=== PATIENT | male | born 1955 | race Caucasian/White ===

== ENCOUNTER 2025-01-04 12:55 | Emergency (ER) | payer MEDICARE, SELFPAY ==
--- OUTSIDE RECORDS SUMMARY | 2025-01-04 12:58 | XMS_ITS | Clinical Summary ---
Author Organization [facility] Address [address] [place] [address] Care Team Providers Care Shoe Puller Name Role Phone Clinic, No Pcp Or Primary Care Provider Unavaila ble Allergies Active Allergy Reactions Criticality Noted Date Comments Penicillins Hives 06/20/2010 Medications calcium carbonate (TUMS) 200 mg calcium (500 mg) chewable tablet Take 1 tablet by mouth 3 times daily with meals. Takes prn 0 01/19/2017 Active Omeprazole 20 mg tabletIndication s:Gastroesophage al reflux disease, esophagitis presence not specified Take 1 tablet by mouth 2 times daily. twice daily before a meal 60 tablet 1 01/20/2020 Active Active Problems Problem Noted Date Diagnosed Date GERD (gastroesophageal reflux disease) 2 Atypical chest pain 07/02/2010 Vitamin D deficiency 07/02/2010 Immunizations Name Administration Dates Next Due Td (Age >=7 Years) 04/07/2003,12/25/2002 Tdap 02/08/2014 Family History Medical History Relation Name Comments Heart Disease Father CAD mid 70s; d ied of [place] @ 85 yo Stroke Maternal Grandfather of CVA @ 72 yo Relation Name Status Comments Father Maternal Grandfather Social History Tobacco Use Types Packs/Day Years Used Date Smoking Tobacco: Never Smokeless Tobacco: Never Tobacco Cessation:Counseling Given: No Alcohol Use Standard Drinks/Week Comments Yes 0 (1 standard drink = 0.6 oz pur e alcohol) very infrequent PHQ-2 Answer Date Recorded PHQ-2 Score 0 01/20/2020 Social Connections Answer Date Recorded Frequency of Communication with Friends and Fami ly Not on file 11/09/2021 Financial Resource Strain Answer Date R ecorded Difficulty of Paying Living Expenses Not on file 11/09/2021 Difficulty of Paying Living Expenses Not on file 11/09/2021 Sex and Gender Information Value Date Recorded Sex Assigned at Not on file 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 Gender Identity Not on file Sexual Orientation Not on file Obstetrics History Last Filed Vital Signs Vital Sign Reading Time Taken Comments Blood Pressure 124/82 01/20/2020 1:04 PM CDT Pulse 64 01/20/2020 1:04 PM CDT Temperature 36.9 C (98.5 F) 01/20/2020 1:04 PM CDT Respiratory Rate 12 07/14/2017 5:34 PM CDT Oxygen Saturation 100% 01/20/2020 1:04 PM CDT Inhaled Oxygen Concentration - - Weight 69.7 kg (153 lb 11.2 oz) 01/20/2020 1:04 PM CDT Height 170.1 cm (5' 6.97) 01/20/2020 1:04 PM CD T Body Mass Index 24.1 01/20/2020 1:04 PM CDT Plan of Treatment Health Maintenance Due Date Last Done Comments Pneumococcal series for age 50+ (1 of 1 - PCV) 2006 Zoster (shingles) series for age 50+ (1 of 2) 2006 BMI (ht and wt on same day) for age 18+ 01/19/2021 01/20/2020, 03/18/2019, 01/04/2018, Additional history exists Depression screening for age 12+ 01/22/2021 01/23/2020, 01/20/2020, 01/20/2020, Additional history exists Fecal testing non-DNA (FIT,FOBT,iFOBT) for age 45-75 08/02/2021 08/02/2020 Tetanus booster 02/09/2024 02/08/2014, 03/11, 12/25/2002 COVID-19 vaccine series ( season) 2024 Influenza for age 65+ 07/10/2024 Lipids for age 45-75 01/22/2025 01/23/2020, 01/19/2017, 01/23/2012, Additional history exists RSV vaccine for adults or (1 - 1-dose 75+ series) 2031 Tdap Completed 02/08/2014 Hepatitis C screening for ag e 18-79 Completed 01/19/2017 Procedures Procedure Name Priority Date/Time Associated Diagnosis Comments OCCULT BLOOD IFOBT STOOL Routine 08/02/2020 12:26 PM CDT Screening for colorectal cancer LIPID PANEL W REFLEX MEASURED LDL Routine 01/23/2020 11:17 AM CDT Health maintenance examination ANTI HCV Routine 01/19/2017 3:11 PM CDT Health maintenance examination from Last 3 Months or Most Recently Relevant to Health Maintenance Results * OCCULT BLOOD IFOBT STOOL (08/02/2020 12:26 PM CDT) STOOL BLOOD ,IFOBT Negative Negative 08/10/2020 9:38 AM CDT [facility] Stool STOOL SPECIMEN / Unknown Non-Blood / Unknown 08/02/2020 12:26 PM CDT 08/08/2020 12:26 PM CDT Ishmael Underwood MD LABORATORY Final Result [facility] [address] [place] [address], [place] [phone] * LIPID PANEL W REFLEX MEASURED LDL (01/23/2020 11:17 AM CDT) CHOLESTEROL,TOTAL 196 100 - 199 mg/dL 01/23/2020 11:16 PM CDT [facility] TRAL LABORATORY TRIGLYCERIDES 33 <150 mg/dL 01/23/2020 11:16 PM CDT [facility] HDL CHOLESTEROL 65 >40 mg/dL 0 11:16 PM CDT [facility] TRAL LABORATORY NON-HDL CHOLESTEROL 131 <145 mg/dl 01/23/2020 11:16 PM CDT [facility] TRAL LABORATORY CHOL/HDL RATIO 3.02 <4.50 01/23/2020 11:16 PM CDT [facility] TRAL LABORATORY LDL CHOLESTEROL 124 <=130 mg/dL 01/23/2020 11:16 PM CDT [facility] TRAL LABORATORY PROVIDER ORDERED STATUS FASTING 01/23/2020 11:16 PM CDT [facility] Blood BLOOD SPECIMEN / Unknown Venipuncture / Unknown 01/23/2020 11:17 AM CDT 01/23/2020 11:17 AM CDT us Ishmael Underwood MD CHEMISTRY Final Result [facility] [address] [place] [address], [place] * ANTI HCV (01/19/2017 3:11 PM CDT) HEPATITIS C ANTIBODY Non-Reacti ve Non-Reacti ve 01/19/2017 9:19 PM CDT [facility] TRAL LABORATORY Blood BLOOD SPECIMEN / Unknown Venipuncture / Unknown 01/19/2017 3:11 PM CDT 01/19/2017 3:11 PM CDT Narrative [facility] - 01/19/2017 9:19 PM CDT Antibodies to HCV not detected; does not exclude the possibility of exposure to HCV. us Ishmael Underwood MD SEND OUTS Final Result [facility] [address] [place] [address], [place] from Last 3 Months or Most Recently Relevant to Health Maintenance Care Teams Shoe Puller Relationship Specialty Start Date End Date Clinic, No Pcp Or . PCP - General 05/19/24
[2025-01-04 13:07] VITALS: BP 160/87; PULSE 74; RESP 20; TEMP 36.7; O2SAT 98
--- NOTE | 2025-01-04 13:20 | ED.GENADULT ---
HPI - General Adult General Chief complaint: Chest Pain Stated complaint: Chest pain Time Seen by Provider: 01/04/25 13:14 History of Present Illness HPI narrative: Arrives complaining of left side chest pain that is intermittent and started at 0300 today. Denies pain in triage, denies SOB or other complaints. Alert and oriented, ABCs intact. 69-year-old man presenting to the emergency department with concern of left-sided chest pain. Has been intermittent over the last 10-12 hours beginning in the swift tender. Sharp twinges of pain. Recurred. Has been working out again and was chopping some wood thought maybe that might be related but seems independent of that is not particularly sore. Not associated with lightheadedness. Not really short of breath. Does have a history of GERD but that is usually a sense of burning in the mid chest where this discomfort has been recurring. Otherwise regularly physically active without difficulty. No significant injuries recently. Does have a history of some palpitations but this is different. On last clinic lab evaluation apparently doctor suggested the he had ?lost a pt of blood?. He mentions this in discussion of GERD history Review of Systems Status of ROS: Reports: 6 or more systems reviewed and unremarkable except as noted in History and below PFSH PFS Social History Smoking Status: Never smoker Do you use any of these nicotine containing products: None How often do you have a drink containing alcohol: monthly or less AUDIT-C Alcohol total score: 1 Non-prescribed substance use: denies use Exam Narrative: Exam Narrative: Pleasant. NAD. Quite calm. Skin is warm and dry. No unusual rash noted. No reproducible pain to palpation of the chest. Lungs are clear. Heart in regular rate and rhythm without murmur rub or gallop. Abdomen is soft and nontender. Opening and closing chest with arm movements does not elicit reproduction of this specific discomfort. Well-perfused peripherally without edema. Const: Vital Signs, click to edit/add: Vital Signs - 24 hr 01/04/25 13:07 01/04/25 15:17 Temperature 98.0 F 98.2 F Pulse Rate [Pulse Oximeter] 74 67 Respiratory Rate 20 18 Blood Pressure [Ri ght Upper Arm] 160/87 H 141/94 H Pulse Oximetry 98 99 Oxygen Delivery Me thod Room Air Room Air Documenting provider has reviewed patient's vital signs: yes Course Vital Signs Vital signs: Initial Vital Signs Temperature 98.0 F 01/04/25 13:07 Temperature Source Temporal Artery Scan 01/04/25 13:07 Pulse Rate 74 01/04/25 13:07 Pulse Rhythm Regular 01/04/25 13:07 Respiratory Rate 20 01/04/25 13:07 Blood Pressure 160/87 H 01/04/25 13:07 Blood Pressure Mean 111 H 01/04/25 13:07 Pulse Oximetry 98 01/04/25 13:07 Oxygen Delivery Method Room Air 01/04/25 13:07 Vital Signs Temperature 98.0 F 01/04/25 13:07 Pulse Rate 74 01/04/25 13:07 Respiratory Rate 20 01/04/25 13:07 Blood Pressure 160/87 H 01/04/25 13:07 Pulse Oximetry 98 01/04/25 13:07 Oxygen Delivery Method Room Air 01/04/25 13:07 Temperature 98.2 F 01/04/25 15:17 Pulse Rate 67 01/04/25 15:17 Respiratory Rate 18 01/04/25 15:17 Blood Pressure 141/94 H 01/04/25 15:17 Pulse Oximetry 99 01/04/25 15:17 Oxygen Delivery Method Room Air 01/04/25 15:17 Medical Decision Making MDM Narrative Medical decision making narrative: Would monitor for time particularly for PVCs or PACs. Per his report this is atypical for his history of heartburn. Look for evidence of ischemic cardiac injury. Other electrolyte abnormalities that might be contributing to arrhythmia. Monitor for general arrhythmia. Doubtful dissection. Doubtful pneumothorax. Unlikely pneumonia or infectious etiology otherwise. Possibly though chest wall related. Labs are reassuring with hemoglobin 12.9. No events on monitor. Did review tracings Otherwise well. Vitals reassuring, stable. See patient discharge plan for further discussion Your labs looked quite good here today. I cannot identify a reason for your symptoms. I would consider follow-up with your primary care provider for further evaluation. Return for marked increase in persistent pain, associated shortness of breath, lightheadedness or nausea. Keep playing broom ball :) Lab Data Lab results reviewed: Yes I reviewed the patient's lab results Labs: Lab Results 01/04/25 01/04/25 01/04/25 Range/Units 13:35 13:50 14:50 WBC 7.14 (4.50-11.00) K/uL RBC 4.41 (4.30-5.90) m/uL Hgb 12.9 L (13.5-17.5) gm/dL Hct 40.2 (37.0-53.0) % MCV 91 (80-100) fL MCH 29 (26-34) pg MCHC 32 (32-36) gm/dL RDW Coeff of Sangeeta 13.4 (11.5-15.5) % Plt Count 233 (140-440) K/uL Neut % (Auto) 79.9 H (42.0-72.0) % Lymph % (Auto) 10.5 L (20-44) % Cameron % (Auto) 8.4 (0.0-11.0) % Eos % (Auto) 0.8 (0.0-7.0) % Baso % (Auto) 0.3 (0.0-3.0) % Neut # (Auto) 5.70 (1.7-7.0) K/uL Lymph # (Auto) 0.70 L (0.90-2.90) K/uL Cameron # (Auto) 0.60 (0.00-0.90) K/UL Eos # (Auto) 0.06 (0.00-0.50) K/uL Baso # (Auto) 0.02 (0.00-0.30) K/uL Abs Immat Gran (auto) 0.01 (0.00-0.30) K/uL Imm/Tot Granulo (auto) 0.1 % D-Dimer Quant (PE/DVT) 0.41 (0.00-0.50) ug/ml Sodium 139 (135-149) mmol/L Potassium 4.5 (3.6-5.1) mmol/L Chloride 102 (96-114) mmol/L Carbon Dioxide 28 (20-32) mmol/L Anion Gap 9 (7-15) mEq/L BUN 32 H (7-30) mg/dL Creatinine 1.5 (0.5-1.5) mg/dL Estimated GFR 50 ml/min Glucose 89 (60-115) mg/dL Calcium 9.5 (8.4-10.6) mg/dL Troponin I < 0.01 L (0.01-0.04) ng/mL C-Reactive Protein < 0.5 L (0.5-1.0) mg/dL NT-Pro-B Natriuret Pep 49 pg/mL Lab Acknowledgement Test Added POC Troponin I 0.00 L (0.01-0.04) ng/ml ECG Data Attestation: I personally reviewed and interpreted this ECG as follows: (Normal sinus rhythm at a rate of 68. No ischemic changes evident.) Discharge Plan Discharge Clinical Impression: Atypical chest pain Patient Disposition: Home, Self-Care Condition: Improved Additional Instructions: Your labs looked quite good here today. I cannot identify a reason for your symptoms. I would consider follow-up with your primary care provider for further evaluation. Return for marked increase in persistent pain, associated shortness of breath, lightheadedness or nausea. Keep playing broom ball :) Follow Up/Referrals: Eduar Elliott MD [Primary Care Provider] - Stand Alone Forms: [employer] Info Instructions
[2025-01-04 14:06] LABS: Basophils Absolute Auto 0.02 K/uL (0.00-0.30); Basophils Percent Auto 0.3 % (0.0-3.0); Eosinophils Absolute Auto 0.06 K/uL (0.00-0.50); Eosinophils Percent Auto 0.8 % (0.0-7.0); Hematocrit 40.2 % (37.0-53.0); Hemoglobin* 12.9 gm/dL (13.5-17.5); Immature Granulocytes Abs Auto 0.01 K/uL (0.00-0.30); Immature Granulocytes Pct Auto 0.1 %; Lymphocytes Percent Auto 10.5 % (20-44); Mean Corpuscular HGB Conc 32 gm/dL (32-36); Mean Corpuscular Hemoglobin 29 pg (26-34); Mean Corpuscular Volume 91 fL (80-100); Monocytes Percent Auto 8.4 % (0.0-11.0); Neutrophils Percent Auto 79.9 % (42.0-72.0); Platelet Count* 233 K/uL (140-440); RDW Coefficient of Variation % 13.4 % (11.5-15.5); Red Blood Count 4.41 m/uL (4.30-5.90); White Blood Count* 7.14 K/uL (4.50-11.00)
[2025-01-04 14:09] LABS: Slide Review Reflex No
[2025-01-04 14:23] LABS: Chloride* 102 mmol/L (96-114); Potassium* 4.5 mmol/L (3.6-5.1); Sodium* 139 mmol/L (135-149)
[2025-01-04 14:26] LABS: Anion Gap 9 mEq/L (7-15); Blood Urea Nitrogen* 32 mg/dL (7-30); Carbon Dioxide* 28 mmol/L (20-32); Creatinine* 1.5 mg/dL (0.5-1.5); Estimated Glomerular Filt Rate 50 ml/min; Glucose* 89 mg/dL (60-115)
[2025-01-04 14:27] LABS: Calcium* 9.5 mg/dL (8.4-10.6)
[2025-01-04 14:34] LABS: C Reactive Protein* < 0.5 mg/dL (0.5-1.0)
[2025-01-04 14:49] LABS: NT Pro B Type NatriureticPept* 49 pg/mL; Troponin I* < 0.01 ng/mL (0.01-0.04)
[2025-01-04 15:17] VITALS: BP 141/94; PULSE 67; RESP 18; TEMP 36.8; O2SAT 99
[2025-01-04 15:38] LABS: D Dimer Quantitative* 0.41 ug/ml (0.00-0.50)
== END 2025-01-04 16:01 | disposition home or self-care (01) ==
PROVIDERS: Emergency Provider Family Medicine; PCP Internal Medicine
DX: R07.89 Other chest pain (principal)
CPT/HCPCS: 36415; 80048; 83880; 84484; 85025; 85379; 86140; 93005; 99284

== ENCOUNTER 2025-09-14 18:21 | Emergency (ER) | payer MEDICARE, SELFPAY ==
--- OUTSIDE RECORDS SUMMARY | 2022-07-07 03:31 | XMS_ITS | Continuity of Care Document ---
Author Organization [facility] Address [address] [address] [place] [address] Phone Care Team Providers Care Nurse Midwife/Clinical Instructor Name Role Phone Krys Rios CRNA Unavailable Unavailable Allergies, Adverse Reactions, Alerts Substance Reaction Status Criticality PENICILLIN HivesHives Active No Information Medications Medication Instructions Dosage Effective Dates (start - stop) Status Comments No Drug Therapy Prescribed Procedures Procedure Date Ugi Endo; Dx W/wo Collec Specm Ugi Endo; W/bx 1/mx Advance Directives Directive Yes / No Effective Date File Name No Information Encounters Encounter Description Practice Location Reason(s) For Visit Diagnoses Date Provider Providers Copied on Encounter [facility], [address] [address], [place], [place], [id number], [place] tel:[phone] [facility] No Information 2 Gabriel Marcano. [address] [facility], [facility] [address], [place], [place], [id number], [place]. tel:[phone] Referring Provider: Reny Hyatt MD, [address] [facility] [address], [place], [address] . tel:[phone] [facility], [address] [address], [place], [place], [address], [place] tel:[phone] [facility] HeartburnPain in throatHeartbur nPain in throat 2 Edmar Oglesby. [address] [facility], [address], [place], [place], [address], [place]. tel:[phone] Referring Provider: Eduar Elliott MD, [address], [place], [address]. tel:[phone] [facility], [address] [address], [place], [place], [address], [place] tel:[phone] [facility] No Information 2 Jane Portillo. [address] [facility], [address], [place], [place], [address], [place]. tel:[phone] [facility], [address] [address], [place], [place], [id number], [place] tel:[phone] [facility] No Information 0 No Information Family History Family Member Type Diagnosis Age At Onset No Information Immunizations Vaccine Date Status Comments tetanus toxoid, reduced diphtheria toxoid, and acellular pertussis vaccine, adsorbed administered Note: [facility] bi-direct ional interface ; Source: Other Registry Payers Payer name Insurance type Covered alliance party ID Authoriza tion(s) [facility] AAR Medic are Complete CI [id number] Social History Type Description Quantity Date Captured Comments Sex Male Smoking Status No Information Chief Complaint And Reason For Visit No Information Reason For Referral Reason For Referral No Information History Of Present Illness Encounter Date Complaint History Of Prese nt Illness No Information Functional Status Date Functional Assessmen t No Information Medications Administered Medication Instructions Dosage Effective Dates (start - stop) Status Comments No Drug Therapy Prescribed Instructions Date Instruction Additional Infor mation Gastroesophageal Reflux Disease Related to Heartburn Gastroesophageal Reflux Disease Related to Heartburn Assessments Type Assessment Date No Information Patient Care Teams Name Effective Dates (start - stop) Status Members No Information
--- OUTSIDE RECORDS SUMMARY | 2022-07-07 03:31 | XMS_ITS | Continuity of Care Document ---
Author Organization [facility] Address [address] [address] [place] [address] Phone Care Team Providers Care Puppet Engineer Name Role Phone Krys Rios CRNA Unavailable [...] Diagnoses Date Provider Providers Copied on Encounter [facility], [address] [address], [place], [place], [id number], [place] tel:[phone] [facility] No Information 2 Gabriel Marcano. [address] [facility], [facility] [address], [place], [place], [address], [place]. tel:[phone] Referring Provider: Reny Hyatt MD, [address] [facility] [address], [place], [address] . tel:[phone] [facility], [address] [address], [place], [place], [address], [place] tel:[phone] [facility] HeartburnPain in throatHeartbur nPain in throat 2 Edmar Oglesby. [address] [facility], [address], [place], [place], [address], [place]. tel:[phone] Referring Provider: Eduar Elliott MD, [address] [facility], [place], [address]. tel:[phone] [facility], [address] [address], [place], [place], [address], [place] tel:[phone] [facility] No Information 2 Jane Portillo. [address] [facility], [address], [place], [place], [address], [place]. tel:[phone] [facility], [address] [address], [place], [place], [address], [place] tel:[phone] [facility] No Information 0 No Information Family History Family Member Type Diagnosis Age At Onset No Information Immunizations Vaccine Date Status Comments tetanus toxoid, reduced diphtheria toxoid, and acellular pertussis vaccine, adsorbed administered Note: [facility] bi-direct ional interface ; Source: Other Registry Payers Payer name Insurance type Covered republican ID Authoriza tion(s) [facility] AAR Medic are Complete CI [id number] Social History Type Description Quantity Date Captured [...]
--- OUTSIDE RECORDS SUMMARY | 2025-09-14 18:23 | XMS_ITS | Clinical Summary ---
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 Gender Identity Not on file Sexual Orientation [...] 08/02/2020 Tetanus booster 02/09/2024 02/08/2014, 03/11, 12/25/2002 Lipids for age 45-75 01/22/2025 01/23/2020, 01/19/2017, 01/23/2012, Additional history exists Influenza Vaccine (#1) 2025 RSV vaccine for adults or (1 - 1-dose 75+ series) 2031 Hepatitis C screening for age 18-79 Completed 01/19/2017 Hepatitis B series for 19+ Aged Out N o longer eligible based on patient's age to complete this topic Procedures Procedure Name Priority Date/Time Associated Diagnosis [...] ,IFOBT Negative Negative 08/10/2020 9:38 AM CDT [facility] Stool STOOL SPECIMEN / Unknown Non-Blood / Unknown 08/02/2020 12:26 PM CDT 08/08/2020 12:26 PM CDT Ishmael Underwood MD LABORATORY Final Result [facility] [address] [place] [address], [place] [phone] * LIPID PANEL W REFLEX MEASURED LDL (01/23/2020 11:17 AM CDT) CHOLESTEROL,TOTAL 196 100 - 199 mg/dL 01/23/2020 11:16 PM CDT [facility] TRAL LABORATORY TRIGLYCERIDES 33 <150 mg/dL 01/23/2020 11:16 PM CDT [facility] TRAL LABORATORY HDL CHOLESTEROL 65 >40 mg/dL 0 11:16 PM CDT [facility] TRAL LABORATORY NON-HDL CHOLESTEROL 131 <145 mg/dl 01/23/2020 11:16 PM CDT [facility] TRAL LABORATORY CHOL/HDL RATIO 3.02 <4.50 01/23/2020 11:16 PM CDT [facility] TRAL LABORATORY LDL CHOLESTEROL 124 <=130 mg/dL 01/23/2020 11:16 PM CDT [facility] TRAL LABORATORY PROVIDER ORDERED STATUS FASTING 01/23/2020 11:16 PM CDT [facility] TRAL LABORATORY Blood BLOOD SPECIMEN / Unknown Venipuncture / Unknown 01/23/2020 11:17 AM CDT 01/23/2020 11:17 AM CDT us Ishmael Underwood MD CHEMISTRY Final Result Performing Organization Address City/[facility]/ZIP Co de Phone Number [facility] [address] [place] [address], * ANTI HCV (01/19/2017 3:11 PM CDT) HEPATITIS C ANTIBODY Non-Reacti ve Non-Reacti ve 01/19/2017 9:19 PM CDT [facility] TRAL LABORATORY Blood BLOOD SPECIMEN / Unknown Venipuncture / Unknown 01/19/2017 3:11 PM CDT 01/19/2017 3:11 PM CDT Narrative [facility] - 01/19/2017 9:19 PM CDT Antibodies to HCV not detected; does not exclude the possibility of exposure to HCV. us Ishmael Underwood MD SEND OUTS Final Result Performing Organization Address City/[facility]/ZIP Co de Phone Number [facility] [address] [place] [address], from Last 3 Months or Most Recently Relevant to Health Maintenance Care Teams Vasc Tech Relationship Specialty Start Date End Date Clinic, No Pcp Or . PCP - General 05/19/24
[2025-09-14 18:28] VITALS: BP 177/103; PULSE 80; RESP 16; TEMP 36.6; O2SAT 98; BMI 24.3
--- NOTE | 2025-09-14 19:13 | ED.GENADULT ---
HPI - General Adult General Chief complaint: Unspecified Complaint, Adult Stated complaint: woodchip stuck in throat Time Seen by Provider: 09/14/25 18:39 History of Present Illness HPI narrative: This patient comes in stating that he thinks that he has a wood chip stuck on the backside of his uvula. He was cutting some brush looking upward yesterday and inhaled something and he was quite certain it was a foreign object. Since then he feels that there is something behind is uvula. He does not have any shortness of breath or difficulty swallowing. He is otherwise in good health. Related Data Home Medications ?Medication ?Instructions ?Recorded ?Confirmed No Known Home Medications 09/14/25 09/14/25 Allergies Allergy/AdvReac Type Severity Reaction Status Date / Time Penicillins Allergy Intermediate Hives Verified 09/14/25 18:27 Review of Systems Status of ROS: Reports: 10 or more systems reviewed and unremarkable except as noted in History and below Narrative: Constitutional: No fevers, no weight gain or loss. Eyes: No discharge. No vision changes. HENT: No congestion, no sore throat, no ear pain. Sense of foreign object behind the wheel a and his posterior pharynx. Cardiovascular: No chest pain, no palpitations. Respiratory: No shortness of breath, no wheezes, no cough. Gastrointestinal: No abdominal pain, no vomiting, no diarrhea. Genitourinary: No dysuria, no hematuria. Musculoskeletal: Normal range of motion. Skin: No rashes, no pruritis. Neurological: No dizziness, weakness, sensory change, speech change. Endo/Heme/Allergies: No bruising or bleeding. No polydipsia. Pysch: no suicidality, no anxiety, no insomnia. All other systems reviewed and are negative. [facility] Social History Smoking Status: Never smoker Do you use any of these nicotine containing products: None How often do you have a drink containing alcohol: monthly or less AUDIT-C Alcohol total score: 1 Non-prescribed substance use: denies use Exam Narrative: Exam Narrative: Constitutional: Well-developed, well-nourished, no acute distress. HEENT: Normocephalic, atraumatic. Oropharynx appears normal on direct visualization. I did use a mirror to look up behind the uvula and saw no sign of foreign object but there was a small area of erythema perhaps from a injury event. Neck: Normal range of motion. Nontender. Supple. Heart: Intact distal pulses. Lungs: No chest discomfort. No wheezes, rhonchi, or rales. Abdomen: Nontender. Back: Normal range of motion. Extremities: Normal range of motion. No injury. Skin: Intact. No rash. Warm. No erythema or pallor. Neurologic: No altered sensation. No weakness. Alert and oriented. Psychiatric: No suicidality. No anxiety or depression. No insomnia. Nursing notes and vitals signs are reviewed. Const: Vital Signs, click to edit/add: Vital Signs - 24 hr 09/14/25 18:28 Temperature 97.8 F Pulse Rate [Pulse Oximeter] 80 Respiratory Rate 16 Blood Pressure [Ri ght Upper Arm] 177/103 H Pulse Oximetry 98 Oxygen Delivery Me thod Room Air Course Vital Signs Vital signs: Initial Vital Signs Temperature 97.8 F 09/14/25 18:28 Temperature Source Temporal Artery Scan 09/14/25 18:28 Pulse Rate 80 09/14/25 18:28 Respiratory Rate 16 09/14/25 18:28 Blood Pressure 177/103 H 09/14/25 18:28 Blood Pressure Mean 127 H 09/14/25 18:28 Pulse Oximetry 98 09/14/25 18:28 Oxygen Delivery Method Room Air 09/14/25 18:28 Vital Signs Temperature 97.8 F 09/14/25 18:28 Pulse Rate 80 09/14/25 18:28 Respiratory Rate 16 09/14/25 18:28 Blood Pressure 177/103 H 09/14/25 18:28 Pulse Oximetry 98 09/14/25 18:28 Oxygen Delivery Method Room Air 09/14/25 18:28 Temperature 97.8 F 09/14/25 18:28 Pulse Rate 80 09/14/25 18:28 Respiratory Rate 16 09/14/25 18:28 Blood Pressure 177/103 H 09/14/25 18:28 Pulse Oximetry 98 09/14/25 18:28 Oxygen Delivery Method Room Air 09/14/25 18:28 Medical Decision Making MDM Narrative Medical decision making narrative: This patient is rather convinced that he has a foreign object behind his uvula in his throat. I did look with an angled mirror and saw no sign of foreign object. I did discuss x-ray and CT imaging options but stated that the best look would be with a nasal scope which we do not have here. The patient was sufficiently reassured with my exam. He is not showing any sign of compromise. He simply has some discomfort in this area likely due to a injury event with no residual foreign object. I encouraged him to follow-up with your nose and throat if not improving or return if worsening. Discharge Plan Discharge Clinical Impression: Pain in throat Patient Disposition: Home, Self-Care Condition: Stable Additional Instructions: Use [id number] medicines as needed and directed. Follow-up with your nose and throat clinic if not improving. Call [phone] for appointment. Return if worsening. Prescriptions: No Action No Known Home Medications Follow Up/Referrals: Eduar Elliott MD [Primary Care Provider, Family Practice] Stand Alone Forms: [employer] Info Instructions
== END 2025-09-14 19:33 | disposition home or self-care (01) ==
PROVIDERS: Emergency Provider Emergency Medicine Emergency Medical Services; PCP Internal Medicine
DX: R07.0 Pain in throat (principal)
CPT/HCPCS: 99282; 99283; 99284